=== PATIENT | female | born 1995 | race Caucasian/White ===

== ENCOUNTER 2021-01-26 12:33 | Inpatient (IN) | payer BC ==
[~2021-01-26] VITALS: Ht 172.7 cm; Wt 87.3 kg
[2021-01-26] VITALS (42 sets, daily range): BP systolic 90–133; BP diastolic 52–82; PULSE 54–116; TEMP 97.7–99.3
[~2021-01-26 12:33] MED LIST: PRENATAL VITAMI1 TA3 PO; ZYRTEC5 MG PO
--- NOTE | 2021-01-26 12:45 | NUR ---
1245- 39.5, G1L0 arrives on unit with c/o contractions that started at 2300 last gabino, and have continued in intensity this am. Positive for movement, denies any LOF, or VB. To room LDR5 with spouse. Oriented to room and POC, changes into clean gown. EFM applied x2. 1250- VS obtained. SVE by this RN /-2, BBOW. Assessment completed. Dr. Carty updated on patient. See physician notification. 1300- IV started and routine labs obtained. 1322- Plan of care reviewed with patient and spouse who verbalizes understanding. EFM off and patient ambulatory in halls.
--- NOTE | 2021-01-26 12:54 | NUR ---
Patient refuses COVID19 swab.
[2021-01-26 13:17] LABS: BASO % 0.2 % (0.0-2.0); GRAN # 8.7 (1.4-6.5); GRAN % 79.9 % (42.2-75.2); HEMATOCRIT 39.1 % (37.0-47.0); HEMOGLOBIN 13.2 g/dl (12.5-16.0); LYMPH # 1.4 (1.2-3.4); LYMPH % 12.4 % (20.0-51.0); MEAN CELL VOLUME 88 fl (80.0-100.0); MEAN CORPUSCULAR HEMOGLOBIN 30 pg (27.0-31.0); MEAN CORPUSCULAR HGB CONC 34 g/dl (33.0-37.0); MEAN PLATELET VOLUME 10.7 fl (7.4-10.4); MONO # 0.7 (0.1-0.6); MONO % 6.8 % (1.7-9.3); PLATELET COUNT 167 K/mm3 (130-400); RED BLOOD COUNT 4.45 M/mm3 (4.10-5.30); REDCELL DISTRIBUTION WIDTH-CV 13.2 % (11.5-14.5)
--- NOTE | 2021-01-26 15:10 | NUR ---
1510- Dr. Carty to patient bedside and reviews POC with patient and family. Patient requesting epidural. Maria Victoria Silver CRNA at desk and notified. LR bolus infusing. 1520- Maria Victoria Silver CRNA to bedside for epidural placement. Patient to edge of bed. FHR tracing intermittently due to maternal position. RN remains at bedside adj. EFM. 1534- Epidural placed and test dose at this time by Maria Victoria Silver CRNA. 1539- Patient wedge left. EFM adjusted and tracing well. 1554- Dr. Carty to bedside. AROM at this time by provider to moderate amount of clear fluid. SVE by Dr. Carty /2. Mary Grace care and patient repositioned.
[2021-01-27] VITALS (18 sets, daily range): BP systolic 113–133; BP diastolic 57–81; PULSE 82–112; TEMP 98–98.9
--- NOTE | 2021-01-27 00:15 | NUR ---
0015- THIS RN TO BEDSIDE FOR SVE CHECK. PATIENT COMPLETE AND +1 STATION. THIS RN NOTIFIED STAFF AND DISCUSSED PUSHING WITH PATIENT. 0020- FIRST PRACTICE PUSH WITH THE PATIENT. THIS RN REMAINS AT BEDSIDE AND REMAINS PUSHING WITH EVERY CONTRACTION WITH THE PATIENT. PATIENT TOLERATING WELL. 0050- DR. ARZATE TO BEDSIDE TO CHECK ON PROGRESS. VERBALIZED PATIENT STILL HAD SOME PUSHING TO DO BUT WAS MAKING PROGRESS. SHE VERBALIZED UNDERSTANDING AND STATED SHE HAD A SURGERY TO GO TO AND TO CALL IF SHE WAS NEEDED. THIS RN REMAINS AT BEDSIDE PUSHING WITH PATIENT AND EVERY CONTRACTION. 0130- DR. ARZATE BACK TO BEDSIDE. EVALUATED PROGRESS AND STATED WE WERE READY TO GET READY FOR DELIVERY. NURSERY STAFF NOTIFIED. PEREA REMOVED. BED BROKEN DOWN AND SET UP FOR DELIVERY. PATIENT BEGINS PUSHING WITH DR. ARZATE. 0152- OF VIABLE FEMALE INFANT. INFANT PLACED TO MOTHER ABDOMEN WHERE NURSERY NURSE ASSUMES CARE AT THIS TIME. NUCHAL X1 WAS NOTED BY PROVIDER AT DELIVERY. 0156 - OF PLACENTA. FUNDUS MASSAGED TO FIRM BY PROVIDER. PITOCIN TURNED TO 333ML/HR PER PROTOCOL. PROVIDER VERBALIZED A 2ND DEGREE TEAR AND BEGAN REPAIRING IT. 0205- REPAIRS FINISHED. VITALS STABLE. FUNDUS FIRM. PATIENT AND ROOM CLEANED UP AND BED PUT BACK TOGETHER. RECOVERY STARTED. PROVIDER NOTED EBL AT 300.
--- NOTE | 2021-01-27 05:00 | NUR ---
0500 EPID CATH DCD. UNABLE TO USE RIGHT LEG WELL. PERICARE DONE IN BED. TRANSFERRED TO W/C AND TO 207. URGE TO VOID. TO BR AND VOIDED 500CC AND PERICARE DONE. AMB TO BED WITH ASSIST X2. GEORGE WELL.
[2021-01-27] MEDS ORDERED: MOTRIN 800800 MG/TAB PO (10:51)
[2021-01-28 06:53] VITALS: BP 124/63; PULSE 83; TEMP 98
--- NOTE | 2021-01-28 09:05 | NUR ---
Initial visit; Parents thanked Histology Specialist for offering congratulations for the of their daughter. Histology Specialist thanked family for choosing [facility].
== END 2021-01-28 10:50 | disposition home or self-care (01) | DRG 807 ==
LOC: LDRO 12:33 → OB 12:45 → LDR 12:45 → OB 01-27 05:00
PROVIDERS: Obstetrics & Gynecology; ADMIT Obstetrics & Gynecology
PROC: 10E0XZZ Delivery of Products of Conception, External Approach (ICD-10-PCS; principal; 2021-01-27)
PROC: 0KQM0ZZ Repair Perineum Muscle, Open Approach (ICD-10-PCS; 2021-01-27)
DX: O69.81X0 Labor and delivery complicated by cord around neck, without compression, not applicable or unspecified (principal); Z37.0 Single live birth; O70.1 Second degree perineal laceration during delivery; Z3A.39 39 weeks gestation of pregnancy; Z23 Encounter for immunization; O99.62 Diseases of the digestive system complicating childbirth; K58.9 Irritable bowel syndrome, unspecified; J32.9 Chronic sinusitis, unspecified; O99.52 Diseases of the respiratory system complicating childbirth
CPT/HCPCS: J2590; J7120

== ENCOUNTER → 2021-05-15 | Outpatient (CLI) | payer BC ==
[~2021-05-15] MED LIST changes: +MOTRIN 800800 MG/TAB PO
== END ==
LOC: COL.RAD 09:32
DX: R10.84 Generalized abdominal pain (principal)

== ENCOUNTER 2023-02-17 14:03 | Inpatient (IN) | payer BC ==
[~2023-02-17] VITALS: Ht 172.7 cm; Wt 87.7 kg
[2023-02-18] VITALS (44 sets, daily range): BP systolic 12–170; BP diastolic 48–81; PULSE 61–105; TEMP 98.1–98.4
--- NOTE | 2023-02-18 07:27 | NUR ---
4728 PATIENT HERE FROM HOME GOR INDUCTION OF LABOR BY DR PEREZ. MON FHT 120 BABY. VERY ACTIVE. OCCASIONAL CONTRATIONS NOTED ON ,PMITOR BUT NOT FELT BY PATIENT. SVE /-3 PATIENT DENIES NEEDS. ASSESSMENT COMPLETED. HUSABND AT BEDSIDE. ALL CONSENTS SIGNED AND IV STARTED IN LEFT WRIST. LR #1 MAYDA.
[2023-02-18 07:41] LABS: BASO % 0.3 % (0.0-2.0); EOS # 0.1 K/mm3 (0.0-0.7); GRAN # 4.7 K/mm3 (1.4-6.5); HEMOGLOBIN 11.7 g/dl (12.5-16.0); LYMPH # 1.6 K/mm3 (1.2-3.4); LYMPH % 22.9 % (20.0-51.0); MEAN CELL VOLUME 84 fl (80.0-100.0); MEAN CORPUSCULAR HEMOGLOBIN 29 pg (27-31); MEAN CORPUSCULAR HGB CONC 34 g/dl (33.0-37.0); MEAN PLATELET VOLUME 10.6 fl (7.4-10.4); MONO # 0.6 K/mm3 (0.1-0.6); MONO % 8.2 % (1.7-9.3); PLATELET COUNT 156 K/mm3 (130-400); REDCELL DISTRIBUTION WIDTH-CV 12.6 % (11.5-14.5)
[2023-02-18 07:42] LABS: HEMATOCRIT 34.5 % (37.0-47.0)
--- NOTE | 2023-02-18 09:17 | NUR ---
0850 PATIENT UP TO BATHRROM TOLERATE WELL
--- NOTE | 2023-02-18 12:59 | NUR ---
1220 PATIENT READY FOR EPIDURAL PLACMENT. [employer] SCHOOL OFFICE ASSISTANT AT BEDSIDE FOR EPIDURAL PLACEMENT. PATIENT TOLERATES EPIDURAL WELL SEE SCHOOL OFFICE ASSISTANT NOTES FOR QUESTIONS. DENIES NEEDS.
--- NOTE | 2023-02-18 17:22 | NUR ---
1710 SVE 790/[address] CHEW CALLED WITH REPORT AT THIS TIME. EPHEDRINE 10 MG IV ALSO GIVEN AT THIS TIME. MO NEW ORDER
--- NOTE | 2023-02-18 18:26 | NUR ---
175 FHT DECEL DOWN TO 60 FOR 2 MIN. SVE ANT LIP. PATIENT REPOSITIONED AT THIS TIME AND FHT INCREASED TO 120. DR PEREZ CALLED TO COME TO HOSPITAL NOW FOR DELIVERY. PEREA OUT AND PERINEAM PREPPED AND POSITITONED FOR DELIVERY. 1751 DR PEREZ HERE AND WILL START PUSHING. 1800 BABY GIRL DELIVERED VIA BY DR PEREZ. CHOULDER CORD MOTED. CORS CLMAPED AND CUT BY DR PEREZ AND . BABY TO MOM CHEST. STRONF CRY NOTED. AT BEDSIDE. MODERATE AMOUNT OF BLEEDING NOT3D. 1804 PLACENTA DELIVERED AT THIS TIME. PITOCIN STARTED AT 333/HR /PROTOCOL. FUNDUS MASSAGE WITH A MODERATE CLOT AND FREE FLOW NOTED. [address] PEREZ. PATIENT TOLERATES WELL. FUNDUS BOGGY AND MASSAGED TIL FIRM AGAIN. METHERGINE TO LEFT THIGH IM PER DR GRAHAM NOW. BABY HELP BY MOTHER AND DEMIES MEHUANG
--- NOTE | 2023-02-18 18:30 | NUR ---
REPORT RCVD FROM SAMUEL HERNANDEZ. PATIENT HAS DELIVERED. RECOVERY BEGINNING. PT BLOOD PRESSURES ARE ELEVATED DUE TO PATIENT SHAKING. WILL CONTINUE TO MONITOR.
[2023-02-18] MEDS ORDERED: MOTRIN 800800 MG/TAB PO (20:49)
[2023-02-19 02:00] VITALS: BP 105/55; PULSE 73; TEMP 98
[2023-02-19 05:08] VITALS: BP 110/60; PULSE 74; TEMP 97.9
[2023-02-19 06:37] VITALS: BP 98/56; PULSE 76; TEMP 98.2
--- NOTE | 2023-02-19 09:27 | NUR ---
Initial visit; Parents thanked Fire Hydrant Operator for visit and offering God's blessings and congratulations for the of their daughter. Fire Hydrant Operator thanked family for choosing our hospital.
[2023-02-19 19:00] VITALS: BP 112/67; PULSE 86
[2023-02-20 08:37] VITALS: BP 118/60; PULSE 79; TEMP 97.5
== END 2023-02-20 11:13 | disposition home or self-care (01) | DRG 807 ==
LOC: OB 02-18 06:25 → LDR 02-18 06:25 → OB 02-18 14:03
PROVIDERS: ADMIT Obstetrics & Gynecology
PROC: 10E0XZZ Delivery of Products of Conception, External Approach (ICD-10-PCS; principal; 2023-02-18)
PROC: 0KQM0ZZ Repair Perineum Muscle, Open Approach (ICD-10-PCS; 2023-02-18)
PROC: 3E033VJ Introduction of Other Hormone into Peripheral Vein, Percutaneous Approach (ICD-10-PCS; 2023-02-18)
DX: O48.0 Post-term pregnancy (principal); Z37.0 Single live birth; Z3A.40 40 weeks gestation of pregnancy; O75.89 Other specified complications of labor and delivery; O70.1 Second degree perineal laceration during delivery; Z23 Encounter for immunization; J30.2 Other seasonal allergic rhinitis; J32.9 Chronic sinusitis, unspecified; O99.52 Diseases of the respiratory system complicating childbirth; K58.9 Irritable bowel syndrome, unspecified; O99.62 Diseases of the digestive system complicating childbirth
CPT/HCPCS: J2210; J2405; J2590; J2795; J7120